=== PATIENT | male | born 1955 | race Caucasian/White ===

== ENCOUNTER 2017-05-09 20:02 | Emergency (ER) | payer BC ==
[~2017-05-09] VITALS: Ht 175.3 cm; Wt 74.8 kg
== END 2017-05-09 21:14 | disposition home or self-care (01) ==
LOC: ED 20:02
DX: S00.33XA Contusion of nose, initial encounter (principal); F10.129 Alcohol abuse with intoxication, unspecified; I10 Essential (primary) hypertension; I25.2 Old myocardial infarction; F17.210 Nicotine dependence, cigarettes, uncomplicated; V49.9XXA Car occupant (driver) (passenger) injured in unspecified traffic accident, initial encounter
CPT/HCPCS: 99283